=== PATIENT | male | born 1970 | race Caucasian/White ===

== ENCOUNTER → 2017-02-05 | Outpatient (CLI) | payer OTHER | LOC: CAT 11:25 | DX: R10.11 Right upper quadrant pain (principal) ==

== ENCOUNTER 2018-04-05 14:18 | Emergency (ER) | payer OTHER ==
[~2018-04-05] VITALS: Ht 177.8 cm; Wt 77.1 kg
--- NOTE | ~2018-04-05 | EKG ---
[address] [place] [address] ELECTROCARDIOGRAM REPORT Name: JESSEE FRAGA Room #: DEP LAURENCE Carroll#: [id number] Admission: 04/05/18 Attend Phys: Discharge: 04/05/18 Date of : 68 Report #: [id number] THIS REPORT FOR: //name// [facility] ED Test Date: 2018-04-05 Test Time: 15:25:27 Pat Name: JESSEE FRAGA Department: Room: Gender: M [employer]: lobo : 1970 Requested By: Carly Hernandez Order Number: [id number] MD: Rick Manuel Measurements Intervals [place] Rate: 71 P: 65 MI: 153 QRS: 55 QRSD: 87 T: 49 QT: 374 QTc: 407 Interpretive Statements Sinus rhythm Early repolarization No previous ECG available for comparison Electronically Signed On 04-06-2018 8:06:31 CDT by Rick Manuel [email or web address] <ELECTRONICALLY SIGNED> By: Rick Manuel MD, [facility] 04/06/18 0806 1525 1525 Rick Manuel MD, FACC /EPI
[2018-04-05] MEDS ORDERED: VITAMIN D1000 UNI1 PO (14:41)
[2018-04-05] MEDS ORDERED: AUBAGIO14 MG PO (14:41)
[2018-04-05] MEDS ORDERED: AMANTADINE 100100 M1 PO (14:42)
[2018-04-05 14:45] LABS: URINE BILIRUBIN NEGATIVE (Negative); URINE BLOOD NEGATIVE (Negative); URINE CLARITY CLEAR; URINE COLOR YELLOW; URINE GLUCOSE-RANDOM* NEGATIVE (Negative); URINE KETONES NEGATIVE (Negative); URINE LEUKOCYTES-REFLEX NEGATIVE (Negative); URINE NITRITE-REFLEX NEGATIVE (Negative); URINE PROTEIN (DIPSTICK) NEGATIVE (Negative); URINE UROBILINOGEN 0.2 E.U./dl (0.2-1.0)
[2018-04-05 15:02] LABS: ABSOLUTE NEUTROPHILS 6.8 thou/uL (1.4-8.2); EOSINOPHILS 2.5 % (0.0-3.0); HEMATOCRIT 44.1 % (42.0-52.0); HEMOGLOBIN 15.5 gm/dL (14.0-18.0); LYMPHOCYTES 18.1 % (24.0-44.0); MCH 32.9 pg (26.0-34.0); MCHC 35.2 g/dL (28.0-37.0); MCV 93.6 fL (80.0-100.0); MONOCYTES 10.8 % (1.0-8.0); PLATELET COUNT 228 thou/uL (150-400); POLYS 67.6 % (36.0-66.0); RBC 4.71 mil/uL (4.50-6.00); RDW 13.6 % (10.5-14.5)
[2018-04-05 15:06] LABS: CALCIUM 9.2 mg/dL (8.5-10.1); CREATININE 1.1 mg/dL (0.7-1.3)
[2018-04-05 15:12] LABS: ALBUMIN 3.9 g/dL (3.4-5.0); DIRECT BILIRUBIN 0.2 mg/dL (<0.1-0.3); TOTAL BILIRUBIN 0.7 mg/dL (<0.1-1.0); TOTAL PROTEIN 7.8 g/dL (6.4-8.2)
[2018-04-05] MEDS ORDERED: PRILOSEC 20 MG20 MG PO (15:58)
[2018-04-05 16:03] VITALS: BP 132/63
== END 2018-04-05 16:05 | disposition home or self-care (01) ==
LOC: ER 14:18
PROVIDERS: Emergency Medicine
DX: R10.13 Epigastric pain (principal); G35 Multiple sclerosis; G47.30 Sleep apnea, unspecified

== ENCOUNTER 2019-06-05 05:49 | Day surgery (SDC) | payer OTHER ==
[~2019-06-05] VITALS: Ht 177.8 cm; Wt 78.0 kg
[~2019-06-05 05:49] MED LIST: AMANTADINE 100100 M1 PO; AUBAGIO14 MG PO; CARAFATE 1 GM TA1 G1 PO; PRILOSEC 20 MG20 MG PO; VITAMIN D1000 UNI1 PO
[2019-06-05 06:46] VITALS: BP 141/85
[2019-06-05 07:11] LABS: CALCIUM 8.4 mg/dL (8.5-10.1); CREATININE 10.9 mg/dL (0.7-1.3); POTASSIUM 4.7 mmol/L (3.5-5.1)
[2019-06-05 07:18] LABS: ALBUMIN 3.7 g/dL (3.4-5.0); TOTAL BILIRUBIN 0.7 mg/dL (<0.1-1.0); TOTAL PROTEIN 8.4 g/dL (6.4-8.2)
[2019-06-05] MEDS ORDERED: ACETAMINOPHEN325 M1 PO (07:44)
[2019-06-05] MEDS ORDERED: OXYCODONE HCL 55 MG PO (07:44)
[2019-06-05 10:05] LABS: ALBUMIN 3.7 g/dL (3.4-5.0); CALCIUM 8.5 mg/dL (8.5-10.1); POTASSIUM 4.7 mmol/L (3.5-5.1); TOTAL BILIRUBIN 0.3 mg/dL (<0.1-1.0); TOTAL PROTEIN 6.8 g/dL (6.4-8.2)
[2019-06-05 10:08] LABS: CREATININE 1.2 mg/dL (0.7-1.3)
[2019-06-05 10:16] VITALS: BP 141/85
--- NOTE | 2019-06-06 17:06 | PATH ---
[facility] [address] [place] [address] PATHOLOGY RPT PROCEDURE Name: MURTAZA FRAGA Room #: [place] [facility] [place].R.#: [id number] Admission: 06/05/19 Date of : 68 Discharge: 06/05/19 Report #: [id number] Path Case #: [id number] [facility] Accession Number: [id number] . 01 Material submitted: . gallbladder - GALLBLADDER . 01 Clinical history: . Calculus of gallbladder without cholecystitis without obstruction . 02 Diagnosis: Gallbladder, cholecystectomy: - Marked acute hemorrhagic and ulcerated ulcerative cholecystitis. - Cholelithiasis. - Incidental reactive lymph node. (IUV/db/pit; 06/05/2019) LBQ 06/06/2019 1312 Local . 02 Electronically signed: . Nivia Boswell MD, Pathologist NPI- [id number] . 01 Gross description: . The specimen is received in formalin labeled "Murtaza Fraga, gallbladder" and consists of a previously opened, pink-santos to purple hemorrhagic gallbladder measuring 9.5 x 2.0 x 2.0 cm. The margin is inked black. Present within the lumen and container are multiple fragmented yellow-santos calculi measuring up to 0.5 cm. The mucosa is pink-santos and smooth to irregular and hemorrhagic with an average wall thickness of 0.3 cm. Present at the fundus are a few raised aspects measuring 0.3 cm. Adjacent the gallbladder neck is a lymph node measuring 0.6 cm. Tripper sections are submitted in A1-A3. (SDY; 06/05/2019) SYU/SYU 06/05/2019 1612 Local . 02 Pathologist provided ICD-10: K80.00 . 02 CPT . 720493 Specimen Comment: A courtesy copy of this report has been sent to [phone] Specimen Comment: [phone] Specimen Comment: Report sent to / DR MACDONALD Performed at: [address], [place] [id number] [place] [address] PATHOLOGY RPT PROCEDURE Name: MURTAZA FRAGA Room #: DEP STEPAN Carroll#: [id number] Admission: 06/05/19 Date of : 68 Discharge: 06/05/19 Report #: [id number] Path Case #: [id number] MD Tulio Martino MD Phone: [phone] Performed at: [address] [id number] MD Nivia Boswell MD Phone: [phone]
== END 2019-06-05 10:30 | disposition home or self-care (01) ==
LOC: TBA 05:49 → OR 05:49
PROVIDERS: Surgery
DX: K80.00 Calculus of gallbladder with acute cholecystitis without obstruction (principal); R59.0 Localized enlarged lymph nodes; G35 Multiple sclerosis; F32.9 Major depressive disorder, single episode, unspecified; G47.30 Sleep apnea, unspecified; F17.210 Nicotine dependence, cigarettes, uncomplicated; K21.9 Gastro-esophageal reflux disease without esophagitis; Z98.890 Other specified postprocedural states; Z90.49 Acquired absence of other specified parts of digestive tract; Z79.899 Other long term (current) drug therapy
CPT/HCPCS: 50010; 50101; 50249; 50411; 50555; 50558; 51297; 51489; 52265; 52266; 53307; 53310; 53312; 54022; 54118; 55245; 56525; 56526; 62110; 62900; 70005